=== PATIENT | male | born 1995 | race Caucasian/White ===

== ENCOUNTER 2024-04-12 14:11 | Emergency (ER) | payer OTHER ==
[~2024-04-12] VITALS: Ht 182.9 cm; Wt 127.3 kg
[2024-04-12] MEDS ORDERED: BACT800T5 PO (15:05)
[2024-04-12] MEDS ORDERED: IBUP-1022 PO (15:05)
[2024-04-12 15:31] VITALS: BP 139/70; TEMP 98.1; O2SAT 98
== END 2024-04-12 15:46 | disposition home or self-care (01) ==
LOC: EDSEX 14:11 → M ED 14:11
DX: T80.818A Extravasation of other vesicant agent, initial encounter (principal); F17.220 Nicotine dependence, chewing tobacco, uncomplicated; Z88.0 Allergy status to penicillin

== ENCOUNTER 2025-08-09 12:32 | Emergency (ER) | payer OTHER ==
[~2025-08-09] VITALS: Ht 182.9 cm; Wt 140.0 kg
[~2025-08-09 12:32] MED LIST: BACT800T5 PO; IBUP600T42 PO
[2025-08-09 16:00] VITALS: BP 175/97; TEMP 97.9; O2SAT 99
== END 2025-08-09 16:09 | disposition home or self-care (01) ==
LOC: M ED 12:32
DX: S83.91XA Sprain of unspecified site of right knee, initial encounter (principal); X58.XXXA Exposure to other specified factors, initial encounter; Y92.9 Unspecified place or not applicable; Y93.01 Activity, walking, marching and hiking; Y99.1 Military activity; Z88.0 Allergy status to penicillin